=== PATIENT | male | born 1995 | race African-American/Black ===

== ENCOUNTER 2023-08-06 13:43 | Emergency (ER) | payer MEDICAID ==
[~2023-08-06] VITALS: Ht 185.4 cm; Wt 82.0 kg
[2023-08-06 13:45] VITALS: O2SAT 98
[2023-08-06 14:10] VITALS: BP 159/87; PULSE 87; RESP 16; TEMP 98.9
[2023-08-06] MEDS ORDERED: AMOX1TAB16 MT (14:51)
== END 2023-08-06 16:29 | disposition home or self-care (01) ==
LOC: ER 13:43
DX: S60.221A Contusion of right hand, initial encounter (principal); Y04.0XXA Assault by unarmed brawl or fight, initial encounter; Y93.89 Activity, other specified; Y92.89 Other specified places as the place of occurrence of the external cause; Y99.8 Other external cause status
CPT/HCPCS: 73130; 99283